=== PATIENT | female | born 1980 | race Caucasian/White ===

== ENCOUNTER 2025-08-29 11:25 | Outpatient (CLI) | payer BC ==
[2025-08-29 13:00] LABS: #Basophils Less than 0.03 10x3/uL (0.0-0.2); #Eosinophils 0.06 10x3/uL (0.0-0.7); #Monocytes 0.67 10x3/uL (0.11-0.59); #Neutrophils 3.43 10x3/uL (1.40-6.50); %Basophils 0.3 % (0.0-1.0); %Eosinophils 1.0 % (0.0-10.0); %Lymphocytes 30.1 % (21.0-51.0); %Monocytes 11.1 % (0.0-10.0); %Neutrophils 57.2 % (42.0-75.0); Hematocrit 48.7 % (36.0-47.0); Hemoglobin 15.9 g/dL (12.0-16.0); Mean Corpuscular Hemoglobin 30.1 pg (27.0-31.0); Mean Corpuscular Volume 92.2 fL (78.0-98.0); Platelet Count 244 10x3/uL (130-400); Red Blood Cell (RBC) Count 5.28 mill/uL (4.20-5.40); White Blood Cell (WBC) Count 6.01 10x3/uL (4.8-10.8)
[2025-08-29 13:29] LABS: ALT (SGPT) 66 U/L (Less than 34); AST (SGOT) 37 U/L (11-34); Albumin 4.3 g/dL (3.1-4.5); Alkaline Phosphatase 81 U/L (40-110); Anion Gap 13 mmol/L (10-20); BUN (Urea Nitrogen) 14 mg/dL (7.0-18.7); Bilirubin, Total 0.3 mg/dL (0.3-1.2); Calc. Creatinine Clearance 0 mL/min (70-130); Calcium 9.7 mg/dL (7.8-10.44); Carbon Dioxide 21 mmol/L (22-29); Chloride 109 mmol/L (98-107); Globulin 3.5 g/dL (2.4-3.5); Glucose 92 mg/dL (70-105); Potassium 4.4 mmol/L (3.5-5.1); Sodium 139 mmol/L (136-145)
== END 2025-08-29 11:26 | disposition home or self-care (01) ==
LOC: LABBT 11:25
PROVIDERS: ATTEND Surgery
DX: Z01.818 Encounter for other preprocedural examination (principal); E66.01 Morbid (severe) obesity due to excess calories
CPT/HCPCS: 80053; 83036; 85025

== ENCOUNTER 2025-09-03 06:13 | Inpatient (IN) | payer BC ==
[2025-09-03] MEDS ORDERED: Acetaminophen 500 MG TAB ONE (06:42)
[2025-09-03] MEDS ORDERED: Heparin 5,000 UNITS/ML VIAL ONE (06:42)
[2025-09-03] MEDS ORDERED: CEFAZOLIN 2 GM VIAL ONE (06:42)
[2025-09-03] MEDS ORDERED: Ketorolac Tromethamine 30 MG (1 mL) VIAL ONE (06:42)
[2025-09-03] MEDS ORDERED: fentaNYL PF 100 MCG/2 ML SYRINGE ONE ×2 (06:53→08:38)
[2025-09-03] MEDS ORDERED: PROPOFOL 0 ML ONE (06:54)
[2025-09-03] MEDS ORDERED: Bupivacaine 0.25% HCL 30 ML VIAL ONE (06:56)
[2025-09-03] MEDS ORDERED: Lidocaine 1% PF 5 ML VIAL ONE (06:58)
[2025-09-03] MEDS ORDERED: Rocuronium Bromide 10 MG/ML (10ML VIAL) ONE (06:58)
[2025-09-03] MEDS ORDERED: PROPOFOL 20 ML ONE (08:09)
[2025-09-03] MEDS ORDERED: SUGAMMADEX SODIUM 200 MG/2 ML VIAL ONE (08:27)
[2025-09-03] MEDS ORDERED: Ondansetron PF 4 MG/2 ML Vial ONE (08:27)
[2025-09-03] MEDS ORDERED: HYDROmorphone 0.5 MG/0.5 ML SYRINGE ONE (09:28)
[2025-09-03] MEDS ORDERED: diphenhydrAMINE 50 MG/ML VIAL IVP PRN (10:59)
[2025-09-03] MEDS ORDERED: Ketorolac Tromethamine 30 MG (1 mL) VIAL IVP PRN (10:59)
[2025-09-03] MEDS ORDERED: Ondansetron PF 4 MG/2 ML Vial IVP PRN (10:59)
[2025-09-03] MEDS ORDERED: Dextrose 50% Abboject 50 ML SYRINGE SLOW IVP PRN (10:59)
[2025-09-03] MEDS ORDERED: oxyCODONE 5 MG TAB PO PRN (10:59)
[2025-09-03] MEDS ORDERED: hydrALAZINE 20 MG/ML VIAL SLOW IVP PRN (10:59)
[2025-09-03] MEDS ORDERED: Glucagon 1 MG/ML KIT IM PRN (10:59)
[2025-09-03 11:53] VITALS: BMI 39.4
[2025-09-03] MEDS: D5 1/2 NS w/20 mEq KCL 1,000 ML IV SCH (14:37)
[2025-09-04] MEDS: Enoxaparin 40 MG (0.4 mL) SYRINGE SC SCH (06:39)
[2025-09-04 06:43] LABS: Hematocrit 43.7 % (36.0-47.0); Hemoglobin 14.2 g/dL (12.0-16.0); Mean Corpuscular Hemoglobin 30.3 pg (27.0-31.0); Mean Corpuscular Volume 93.4 fL (78.0-98.0); Red Blood Cell (RBC) Count 4.68 mill/uL (4.20-5.40); White Blood Cell (WBC) Count 9.78 10x3/uL (4.8-10.8)
[2025-09-04 06:44] LABS: #Basophils Less than 0.03 10x3/uL (0.0-0.2); #Eosinophils Less than 0.03 10x3/uL (0.0-0.7); #Monocytes 0.63 10x3/uL (0.11-0.59); #Neutrophils 7.42 10x3/uL (1.40-6.50); %Basophils 0.1 % (0.0-1.0); %Eosinophils 0.1 % (0.0-10.0); %Lymphocytes 17.2 % (21.0-51.0); %Monocytes 6.4 % (0.0-10.0); %Neutrophils 75.9 % (42.0-75.0); Platelet Count 289 10x3/uL (130-400)
[2025-09-04 06:50] LABS: Anion Gap 13 mmol/L (10-20); BUN (Urea Nitrogen) 6 mg/dL (7.0-18.7); Calc. Creatinine Clearance 150 mL/min (70-130); Calcium 8.9 mg/dL (7.8-10.44); Carbon Dioxide 22 mmol/L (22-29); Chloride 109 mmol/L (98-107); Glucose 104 mg/dL (70-105); Potassium 3.8 mmol/L (3.5-5.1); Sodium 140 mmol/L (136-145)
[2025-09-04 08:34] VITALS: BP 126/82; TEMP 98.8
[2025-09-04] MEDS ORDERED: Pantoprazole 40 MG VIAL IVP SCH (09:00)
[2025-09-05] MEDS ORDERED: Enoxaparin 40 MG (0.4 mL) SYRINGE SC SCH (09:00)
== END 2025-09-04 07:46 | disposition home or self-care (01) | DRG 621 ==
LOC: SDC 06:13 → SURG B 10:03 → SDC 10:59 → SURG B 10:59 → SDC 09-04 09:32 → SURG B 09-04 09:32
PROVIDERS: ADMIT Surgery; ATTEND Surgery
PROC: 0DB64Z3 Excision of Stomach, Percutaneous Endoscopic Approach, Vertical (ICD-10-PCS; principal; 2025-09-03)
PROC: 8E0W4CZ Robotic Assisted Procedure of Trunk Region, Percutaneous Endoscopic Approach (ICD-10-PCS; 2025-09-03)
DX: E66.01 Morbid (severe) obesity due to excess calories (principal); Z68.41 Body mass index [BMI] 40.0-44.9, adult; Z98.51 Tubal ligation status; Z90.49 Acquired absence of other specified parts of digestive tract; Z88.5 Allergy status to narcotic agent
CPT/HCPCS: 80048; 85025; 88307; J0169; J0665; J1100; J1171; J1644; J1650; J1885; J2405; J2550; J2704; J3480; S2900